=== PATIENT | female | born 1995 | race Caucasian/White ===

== ENCOUNTER 2023-01-24 15:38 | Emergency (ER) | payer OTHER ==
[2023-01-24] MEDS ORDERED: Lidocaine 1% (PF) 30 ML VIAL ONE (16:13)
== END 2023-01-24 17:13 | disposition home or self-care (01) ==
LOC: CSHERS 15:38
DX: L02.211 Cutaneous abscess of abdominal wall (principal)
CPT/HCPCS: 10060; J2001

== ENCOUNTER 2023-03-08 16:10 | Emergency (ER) | payer OTHER, SELFPAY | END 2023-03-08 16:50 | disposition home or self-care (01) | LOC: CSHERS 16:10 | DX: M77.52 Other enthesopathy of left foot and ankle (principal); M77.51 Other enthesopathy of right foot and ankle | CPT/HCPCS: 99283 ==

== ENCOUNTER 2023-05-27 15:23 | Emergency (ER) | payer SELFPAY | END 2023-05-27 16:47 | disposition left against medical advice (07) | LOC: CSHERS 15:23 | DX: Z53.21 Procedure and treatment not carried out due to patient leaving prior to being seen by health care provider (principal) ==

== ENCOUNTER 2023-09-26 08:02 | Inpatient (IN) | payer OTHER, SELFPAY ==
[2023-09-26 09:59] VITALS: BMI 56.1
[2023-09-26 10:09] LABS: Hematocrit 30.4 % (34.9-44.5); Hemoglobin 9.9 g/dL (12.0-15.5); Mean Corpuscular HGB CONC 32.6 g/dL (32.0-36.0); Mean Corpuscular Hemoglobin 29.1 pg (27.0-33.0); Mean Corpuscular Volume 89.4 fl (81.6-98.3); Mean Platelet Volume 10.6 fl (7.4-10.4); Platelet Count 225 10x3/uL (150-450); RBC Distribution Width 13.5 % (11.5-14.5); White Blood Cell (WBC) Count 8.9 10x3/uL (3.5-10.5)
[2023-09-26 10:13] LABS: ALT (SGPT) 10 U/L (8-55); AST (SGOT) 11 U/L (5-34); Albumin 2.4 g/dL (3.5-5.0); Alkaline Phosphatase 149 U/L (40-110); Anion Gap 12 mmol/L (10-20); BUN (Urea Nitrogen) 6 mg/dL (7.0-18.7); Bilirubin, Total 0.3 mg/dL (0.2-1.2); Calc. Creatinine Clearance 339 mL/min (70-130); Calcium 8.7 mg/dL (7.8-10.44); Carbon Dioxide 22 mmol/L (22-29); Chloride 106 mmol/L (98-107); Estimated GFR 121; Globulin 3.8 g/dL (2.4-3.5); Glucose 105 mg/dL (70-105); Potassium 4.3 mmol/L (3.5-5.1); Protein, Total 6.2 g/dL (6.0-8.3); Sodium 136 mmol/L (136-145)
[2023-09-26 10:28] LABS: HIV (1/2) Antibody/Antigen Non-Reactive (NonReactive); HIV 1/2 INDEX 0.13 S/CO (<1.00)
[2023-09-26 10:29] LABS: HBsAg Index 0.47 S/CO (0-0.99); Hep B Surf Ag - L&D Non-Reactive S/CO (NonReactive)
[2023-09-26 10:31] LABS: Syphilis Antibody Nonreactive (Nonreactive); Syphilis Antibody Index 0.09 S/CO (<1.00 Non-Reactive)
[2023-09-26 14:29] LABS: Amphetamine Not Detected (NotDetected); Barbiturates Screen Not Detected (NotDetected); Benzodiazepine Screen Not Detected (NotDetected); Cocaine Metabolite Screen Not Detected (NotDetected); Methadone Not Detected (NotDetected); Methamphetamine Not Detected (NotDetected); Opiate Screen Not Detected (NotDetected); Oxycodone Screen Not Detected (NotDetected); Phencyclidine (PCP) Not Detected (NotDetected); THC/Cannabinoid Screen Detected (NotDetected); Tricyclic Screen Not Detected (NotDetected)
[2023-10-02 09:59] VITALS: BMI 56.1
[2023-10-04 05:23] LABS: Hematocrit 33.9 % (34.9-44.5); Hemoglobin 11.5 g/dL (12.0-15.5); Mean Corpuscular HGB CONC 33.9 g/dL (32.0-36.0); Mean Corpuscular Hemoglobin 29.9 pg (27.0-33.0); Mean Corpuscular Volume 88.3 fl (81.6-98.3); Mean Platelet Volume 10.5 fl (7.4-10.4); Platelet Count 250 10x3/uL (150-450); RBC Distribution Width 13.8 % (11.5-14.5); Red Blood Cell (RBC) Count 3.84 10x6/uL (3.90-5.03); White Blood Cell (WBC) Count 13.7 10x3/uL (3.5-10.5)
[2023-10-04 05:34] LABS: PTT 23.9 sec (22.0-33.0); Prothrombin Time 10.6 sec (9.5-12.1)
[2023-10-05 09:04] LABS: Hematocrit 29.2 % (34.9-44.5); Hemoglobin 9.7 g/dL (12.0-15.5); Mean Corpuscular HGB CONC 33.2 g/dL (32.0-36.0); Mean Corpuscular Hemoglobin 29.2 pg (27.0-33.0); Mean Platelet Volume 10.6 fl (7.4-10.4); Platelet Count 210 10x3/uL (150-450); RBC Distribution Width 13.6 % (11.5-14.5); Red Blood Cell (RBC) Count 3.32 10x6/uL (3.90-5.03); White Blood Cell (WBC) Count 13.2 10x3/uL (3.5-10.5)
[2023-10-06 08:00] VITALS: TEMP 98.5
[2023-10-06 13:31] VITALS: BP 118/86
== END 2023-10-06 14:20 | disposition home or self-care (01) | DRG 806 ==
LOC: CSHLD/OP 08:02 → CSHLD 10:43 → CSHANTE 09-28 13:00 → CSHLD 10-04 04:43 → CSHPP 10-04 09:55
PROVIDERS: ADMIT Obstetrics & Gynecology; ATTEND Obstetrics & Gynecology
PROC: 10E0XZZ Delivery of Products of Conception, External Approach (ICD-10-PCS; principal; 2023-10-04)
DX: O42.013 Preterm premature rupture of membranes, onset of labor within 24 hours of rupture, third trimester (principal); O10.92 Unspecified pre-existing hypertension complicating childbirth; Z37.2 Twins, both liveborn; O99.324 Drug use complicating childbirth; O23.593 Infection of other part of genital tract in pregnancy, third trimester; Z3A.30 30 weeks gestation of pregnancy; O30.043 Twin pregnancy, dichorionic/diamniotic, third trimester; O99.214 Obesity complicating childbirth; E66.01 Morbid (severe) obesity due to excess calories; Z3A.31 31 weeks gestation of pregnancy; Z79.899 Other long term (current) drug therapy; O99.02 Anemia complicating childbirth; F12.90 Cannabis use, unspecified, uncomplicated; B37.31 Acute candidiasis of vulva and vagina
CPT/HCPCS: 36415; 51702; 59025; 76810; 76815; 76819; 80053; 80306; 82570; 84156; 85027; 85610; 85730; 86780; 86850; 86900; 86901; 87340; 87389; 88307; 99285; J0290; J0702; J1200; J1580; J1644; J3475; J3490; J7120